=== PATIENT | female | born 1975 | race African-American/Black ===

== ENCOUNTER 2022-06-09 17:15 | Emergency (ER) | payer OTHER, SELFPAY ==
--- NOTE | ~2022-06-09 | XR_ITS ---
XR chest 2V DATE: 06/09/2022 19:15 INDICATION: Cough for 2 weeks. Shortness of breath. History of asthma. TECHNIQUE: PA and lateral views COMPARISON: None FINDINGS: Normal heart size. No hilar or mediastinal enlargement. No pulmonary infiltrate or consolid ation, pleural effusion or pulmonary vascular congestion or pneumothorax. IMPRESSION: No active cardiopulmonary disease Reviewed, dictated and finalized at location A.
[2022-06-09 17:20] VITALS: BP 142/72; PULSE 88; RESP 18; TEMP 36.4; O2SAT 99
--- NOTE | 2022-06-09 17:53 | ED.GENADULT ---
HPI - General Adult General Chief complaint: Upper Respiratory Infection Stated complaint: cough and congestion - hx of asthma Time Seen by Provider: 06/09/22 17:27 History of Present Illness HPI narrative: 46-year-old female presented emergency department for evaluation of an upper respiratory infection. Patient does have history of asthma, patient does use albuterol nebulizers intermittently and is on an inhaled steroid. Patient states she has not been taking these medications but has also not required them as of recently. Related Data Home Medications Medication Instructions Recorded Confirmed No Home Medications 06/09/22 06/09/22 Allergies Allergy/AdvReac Type Severity Reaction Status Date / Time meloxicam Allergy Rash Verified 06/09/22 17:50 Review of Systems Review of Systems: CONSTITUTIONAL: Denies fever, chills, or sweats. EYES: Denies visual changes, redness, or discharge. ENT: Denies rhinorrhea, congestion, sore throat, or otalgia. CARDIOVASCULAR: Denies chest pain, palpitations, or edema. RESPIRATORY: Upper respiratory infection symptoms, see HPI GASTROINTESTINAL: Denies abdominal pain, nausea, vomiting, or diarrhea. GENITOURINARY: Denies dysuria or hematuria. SKIN: Denies rash or itching. MUSCULOSKELETAL: Denies back pain, joint pain, or myalgia. NEUROLOGIC: Denies headache, numbness, or weakness. Exam Narrative: APPEARANCE: Well appearing, no pain, no distress, well-nourished. HEAD: normocephalic, atraumatic. EYES: PERRLA/EOMI, conjunctivae clear. NOSE: Normal no drainage EARS:TMS clear with good light reflex. THROAT: Pharynx clear, no exudate. NECK: Supple. No adenopathy, no masses. RESPIRATORY: Airway patent, respirations nonlabored. Some wheeze bilaterally CARDIOVASCULAR: Regular rate and rhythm without murmurs rubs or gallops. ABDOMINAL: Soft, nontender, nondistended, normal bowel sounds MUSCULOSKELETAL: Moves all extremities. Strength/ROM intact, No edema, No calf tenderness. NEURO: Alert. Cranial nerves II through XII intact. Grossly intact SKIN: Warm, dry. Normal Color Course Course Emergency Course: Patient did improve with treatment. Vital Signs Vital signs: Vital Signs Temperature 97.6 F 06/09/22 17:20 Pulse Rate 88 06/09/22 17:20 Respiratory Rate 18 06/09/22 17:20 Blood Pressure 142/72 H 06/09/22 17:20 Pulse Oximetry 99 06/09/22 17:20 Oxygen Delivery Room Air 06/09/22 17:20 Temperature 97.6 F 06/09/22 17:20 Pulse Rate 88 06/09/22 17:20 Respiratory Rate 18 06/09/22 17:20 Blood Pressure 142/72 H 06/09/22 17:20 Pulse Oximetry 99 06/09/22 17:20 Oxygen Delivery Room Air 06/09/22 17:20 Medical Decision Making Vital Signs Vital Signs: Vital Signs Temperature 97.6 F 06/09/22 17:20 Pulse Rate 88 06/09/22 17:20 Respiratory Rate 18 06/09/22 17:20 Blood Pressure 142/72 H 06/09/22 17:20 Pulse Oximetry 99 06/09/22 17:20 Oxygen Delivery Room Air 06/09/22 17:20 Temperature 97.6 F 06/09/22 17:20 Pulse Rate 88 06/09/22 17:20 Respiratory Rate 18 06/09/22 17:20 Blood Pressure 142/72 H 06/09/22 17:20 Pulse Oximetry 99 06/09/22 17:20 Oxygen Delivery Room Air 06/09/22 17:20 Lab Data Lab results reviewed: Yes I reviewed the patient's lab results. Labs: Lab Results 06/09/22 Range/Units 17:37 Influenza A (RT-PCR) Negative (Negative) Influenza B (RT-PCR) Negative (Negative) SARS-CoV-2 RNA (RT-PCR) Negative Discharge Plan Discharge Clinical Impression: Upper respiratory infection Patient Disposition: Home, Self-Care Condition: Stable Instructions: Antibiotic Form, Upper Respiratory Infection (ED), Viral Syndrome (ED) Additional Instructions: Have close follow-up with your primary care physician. Home medications as directed. If you have any worsening symptoms please call or return to the emergency room. Prescriptions: No Action No Home Medications
[2022-06-09 18:27] LABS: Influenza A QL RT-PCR Negative (Negative); Influenza B QL RT-PCR Negative (Negative); SARS-CoV-2 RNA PCR Negative
== END 2022-06-09 20:07 | disposition home or self-care (01) ==
PROVIDERS: Emergency Provider Emergency Medicine
DX: J06.9 Acute upper respiratory infection, unspecified (principal); J45.909 Unspecified asthma, uncomplicated; Z20.822 Contact with and (suspected) exposure to COVID-19
CPT/HCPCS: 71046; 87502; 99283; U0003; U0005

== ENCOUNTER 2023-01-11 17:05 | Emergency (ER) | payer OTHER, SELFPAY ==
[2023-01-11 18:13] VITALS: BP 146/72; PULSE 70; RESP 16; TEMP 36.4; O2SAT 98
--- NOTE | 2023-01-11 20:05 | ED.GENADULT ---
HPI - General Adult General Chief complaint: Upper Respiratory Infection Stated complaint: COUGHING Time Seen by Provider: 01/11/23 19:03 History of Present Illness HPI narrative: Patient is a 47-year-old female who presents ER with cough. Associate with sinus congestion and sore throat. Occasional wheezing. Became concerned she may have pneumonia. She has tested her for self for COVID at home and been negative. No body aches. No abdominal discomfort or nausea or vomiting. No alleviating factors. Related Data Allergies Allergy/AdvReac Type Severity Reaction Status Date / Time meloxicam Allergy Rash Verified 06/09/22 17:50 Review of Systems Review of Systems: All systems reviewed & are unremarkable except as noted in HPI and below Constitutional: Constitutional: Denies chills, Denies fatigue and Denies fever(s) ENT: Reports nasal congestion and Reports sore throat Cardiovascular: Cardiovascular: Denies chest pain, Denies rapid heart rate and Denies radiating jaw, neck or arm pain Respiratory: Respiratory: Reports cough, Denies dyspnea and Reports wheezing Gastrointestinal: Gastrointestinal: Denies abdominal pain, Denies nausea and Denies vomiting PMFSH Past Medical History Medical History (Updated 01/12/23 @ 05:48 by Rudi Sanders MD) Asthma Hyperlipidemia Surgical History Surgical History (Updated 01/12/23 @ 05:48 by Rudi Sanders MD) No pertinent past surgical history Exam Narrative: GENERAL: Well-appearing, morbidly obese, and in no acute distress. HEAD: Normocephalic, atraumatic. ENT: Mucous membranes moist. No pharyngeal erythema or tonsillar exudate. Uvula midline and nonedematous. NECK: Supple. CHEST: Clear to auscultation. No respiratory distress. HEART: Regular rate and rhythm. Normal peripheral pulses EXTREMITIES: Normal range of motion. No edema. NEURO: Alert and oriented x3. PSYCH: Normal mood and affect. Course Course Emergency Course: Patient resting comfortably. Lung sounds clear. Do not recommend x-ray at this time and patient comfortable with discharge home with decongestant and expectorant. Vital Signs Vital signs: Vital Signs Temperature 97.6 F 01/11/23 18:13 Pulse Rate 70 01/11/23 18:13 Respiratory Rate 16 01/11/23 18:13 Blood Pressure 146/72 H 01/11/23 18:13 Pulse Oximetry 98 01/11/23 18:13 Oxygen Delivery Room Air 01/11/23 18:13 Temperature 97.6 F 01/11/23 18:13 Pulse Rate 70 01/11/23 18:13 Respiratory Rate 16 01/11/23 18:13 Blood Pressure 146/72 H 01/11/23 18:13 Pulse Oximetry 98 01/11/23 18:13 Oxygen Delivery Room Air 01/11/23 18:13 Medical Decision Making Vital Signs Vital Signs: Vital Signs Temperature 97.6 F 01/11/23 18:13 Pulse Rate 70 01/11/23 18:13 Respiratory Rate 16 01/11/23 18:13 Blood Pressure 146/72 H 01/11/23 18:13 Pulse Oximetry 98 01/11/23 18:13 Oxygen Delivery Room Air 01/11/23 18:13 Temperature 97.6 F 01/11/23 18:13 Pulse Rate 70 01/11/23 18:13 Respiratory Rate 16 01/11/23 18:13 Blood Pressure 146/72 H 01/11/23 18:13 Pulse Oximetry 98 01/11/23 18:13 Oxygen Delivery Room Air 01/11/23 18:13 Discharge Plan Discharge Clinical Impression: Upper respiratory infection Patient Disposition: Home, Self-Care Condition: Stable Instructions: Viral Syndrome (ED) Additional Instructions: Return the ER if you cannot breathe, you cannot keep down food or water, you lose consciousness, you have additional concerns. Prescriptions: New pseudoephedrine-guaifenesin [Mucinex D] 60-600 mg tablet extended release 12 hr 1 tablet PO BID PRN (Reason: cold symptoms) Qty: 14 0RF Follow-up/Referrals: PHYSICIAN NOT ON STAFF,NONSTAFF [Primary Care Provider] - 1 Week
== END 2023-01-11 20:27 | disposition home or self-care (01) ==
PROVIDERS: Emergency Provider Emergency Medicine
DX: J06.9 Acute upper respiratory infection, unspecified (principal); E78.5 Hyperlipidemia, unspecified; J45.909 Unspecified asthma, uncomplicated
CPT/HCPCS: 99283

== ENCOUNTER 2023-06-20 15:40 | Emergency (ER) | payer OTHER, SELFPAY ==
--- NOTE | ~2023-06-20 | XR_ITS ---
EXAMINATION: XR chest 2V DATE: 06/20/2023 17:19 INDICATION: Cough TECHNIQUE: PA and lateral views of the chest were obtained. COMPARISON: Chest radiograph dated 06/09/2022 FINDINGS: The lungs remain clear with no focal airspace opacities, pulmonary edema, pleural effusion or pneumot horax. The cardiomediastinal silhouette is normal. Moderate thoracic spondylosis. Likely cholecystect shikha clips in the upper abdomen. IMPRESSION: 1. No acute cardiopulmonary disease. Reviewed, dictated and finalized at location A. OUT SUPERVISOR
[2023-06-20 15:45] VITALS: BP 121/68; PULSE 88; RESP 18; TEMP 36.6; O2SAT 98
--- NOTE | 2023-06-20 15:51 | ED.GENADULT ---
HPI - General Adult General Chief complaint: Upper Respiratory Infection Stated complaint: Cough Time Seen by Provider: 06/20/23 17:45 History of Present Illness HPI narrative: Nicki Broussard is a 47 y/o with PMHx of HLD/ fibroids and Asthma, she presents today with complaints of having a cough/ runny nose that has been ongoing for two weeks and getting worse. She has tired OTC medicaitons but she isn't improving. She reports her cough was clear and now its thick green sputum production. Denies sore throat/ Nausea /vomiting/ no abdominal pain/ no fever/chills. Related Data Allergies Allergy/AdvReac Type Severity Reaction Status Date / Time meloxicam Allergy Rash Verified 06/09/22 17:50 Review of Systems Review of Systems: CONSTITUTIONAL: Denies fever, chills, or sweats. EYES: Denies visual changes, redness, or discharge. ENT: Denies rhinorrhea, congestion, sore throat, or otalgia. CARDIOVASCULAR: Denies chest pain, palpitations, or edema. RESPIRATORY: Reports cough that is productive for about 2 weeks GASTROINTESTINAL: Denies abdominal pain, nausea, vomiting, or diarrhea. GENITOURINARY: Denies dysuria or hematuria. SKIN: Denies rash or itching. MUSCULOSKELETAL: Denies back pain, joint pain, or myalgia. NEUROLOGIC: Denies headache, numbness, dizziness, or weakness. PSYCHIATRIC: Denies anxiety or depression. PMFSH Past Medical History Medical History Asthma Hyperlipidemia Surgical History Surgical History No pertinent past surgical history Exam Narrative: GENERAL: Well-appearing, well-nourished, and in no acute distress. HEAD: Normocephalic, atraumatic. EYES: PERRLA and EOMI. ENT: Nares clear, no rhinorrhea or epistaxis. Mucous membranes moist. Oropharynx without tonsillar hypertrophy exudate or other lesions. Bilateral TMs pearly vance nonbulging NECK: Supple. No adenopathy or masses. No carotid bruits or JVD CHEST: Clear to auscultation. No respiratory distress. No wheezes rales or rhonchi HEART: Regular rate and rhythm. No murmur heard. Normal peripheral pulses. ABDOMEN: Soft, nontender, nondistended, normal active bowel sounds. EXTREMITIES: Normal range of motion. No edema. SKIN: Warm, dry, no rash. NEURO: No focal deficits. Alert and oriented x3. PSYCH: Normal mood and affect. Course Vital Signs Vital signs: Vital Signs Temperature 36.6 C 06/20/23 15:45 Pulse Rate 88 06/20/23 15:45 Respiratory Rate 18 06/20/23 15:45 Blood Pressure 121/68 06/20/23 15:45 Pulse Oximetry 98 06/20/23 15:45 Oxygen Delivery Room Air 06/20/23 15:45 Temperature 36.6 C 06/20/23 15:45 Pulse Rate 88 06/20/23 15:45 Respiratory Rate 18 06/20/23 15:45 Blood Pressure 121/68 06/20/23 15:45 Pulse Oximetry 98 06/20/23 15:45 Oxygen Delivery Room Air 06/20/23 15:45 Medical Decision Making MDM Narrative Medical decision making narrative: On exam pt's lungs are clear / no wheezes / rhnonci noted. patient reprots she has been afebrile with this cough over the past two weeks. No elevated WBC CMP is stable Flu/Covid/RSV negative With pt's symptoms on going for about 2 weeks and not improving, hemodynamicallyl stable/ no evidence of sepsis / CHest x ray is clear Not hypoxic sating 98% on RA> Plan to d/c home with PO antibiotics Close follow up with PCP Strict return precautions provided. Differential Diagnosis Differential Diagnosis: URI/Pneumonia/Astham exacerbation Vital Signs Vital Signs: Vital Signs Temperature 36.6 C 06/20/23 15:45 Pulse Rate 88 06/20/23 15:45 Respiratory Rate 18 06/20/23 15:45 Blood Pressure 121/68 06/20/23 15:45 Pulse Oximetry 98 06/20/23 15:45 Oxygen Delivery Room Air 06/20/23 15:45 Temperature 36.6 C 06/20/23 15:45 Pulse Rate 88 06/20/23 15:45 Respiratory Rate 18 06/20/23 15:45 Blood
[2023-06-20 16:53] LABS: Basophils Percent Auto 0.3 % (0.2-1.2); Eosinophils Absolute Auto 0.1 K/mm3 (0-0.3); Eosinophils Percent Auto 1.8 % (0-4.4); Hematocrit 41.8 % (37.0-47.0); Hemoglobin 13.7 g/dL (12.0-15.0); Immature Granulocyte Absolute 0.02 K/mm3 (0.00-0.031); Immature Granulocyte Percent A 0.3 % (0-0.5); Lymphocytes Absolute Auto 2.17 K/mm3 (0.9-3.2); Lymphocytes Percent Auto 29.8 % (18.3-44.2); Mean Corpuscular HGB Conc 32.8 g/dl (32-36); Mean Corpuscular Hemoglobin 25.6 pg (26-34); Mean Platelet Volume 10.7 fl (7.4-10.4); Monocytes Absolute Auto 0.6 K/mm3 (0.1-0.6); Monocytes Percent Auto 8.5 % (2.6-8.5); Neutrophils Absolute Auto 4.3 K/mm3 (1.3-6.7); Neutrophils Percent Auto 59.3 % (45.5-73.1); Platelet Count Result 287 k/mm3 (150-375); Red Blood Count 5.36 M/mm3 (4.2-5.4); Red Cell Distribution Width 14.8 % (11.5-14.5); White Blood Count 7.3 K/mm3 (4.5-10.0)
[2023-06-20 17:00] LABS: Anion Gap 6 mmol/L (8-16); Blood Urea Nitrogen 8 mg/dL (7-17); Carbon Dioxide 29 mmol/L (22-30); Chloride 105 mmol/L (98-107); Estimated Glomerular Filt Rate > 60; Glucose 180 mg/dL (65-110); Potassium 3.7 mmol/L (3.4-5.0); Sodium 140 mmol/L (137-145)
[2023-06-20 17:19] LABS: Influenza A QL RT-PCR Negative (Negative); Influenza B QL RT-PCR Negative (Negative); RSV RNA, RT-PCR Negative (Negative); SARS-CoV-2 RNA PCR Negative (Negative)
[2023-06-20] MEDS: AMOXICILLIN/CLAVULANATE K 875-125 MG TAB 1 TABLET PO (18:11)
== END 2023-06-20 18:21 | disposition home or self-care (01) ==
PROVIDERS: Emergency Provider Nurse Practitioner Family; PCP Family Medicine
DX: J06.9 Acute upper respiratory infection, unspecified (principal); J45.909 Unspecified asthma, uncomplicated; Z20.822 Contact with and (suspected) exposure to COVID-19; E78.5 Hyperlipidemia, unspecified
CPT/HCPCS: 36415; 71046; 80048; 85025; 87637; 99283; A9270

== ENCOUNTER 2023-11-17 17:17 | Emergency (ER) | payer SELFPAY ==
--- NOTE | ~2023-11-17 | CT_ITS ---
EXAMINATION: CT cervical spine wo con DATE: 11/17/2023 18:09 INDICATION: Left-sided neck pain radiating to the shoulders paresthesias. TECHNIQUE: Computed tomography (CT) of the cervical spine was performed without intravenous contrast. Automated exposure control and iterative reconstruction technique were employed. The dose-length pro duct was 575.29 mGy-cm. COMPARISON: None FINDINGS: 11 degrees cervical dextroscoliosis. There is also lower cervical kyphosis with straightening of the upper cervical spine. Vertebral body heights are normal. No acute fractures. Moderate disc height los s at C5-C6 and C6-C7 and mild disc height loss at C7-T1. Small amount of atherosclerotic calcific loc ation at the right carotid bulb. Cervical soft tissues are otherwise unremarkable. Visual is portions of the upper lungs are clear. The following disc levels are specifically discussed: C2-C3: There is no uncovertebral joint osteoarthritis. There is mild bilateral facet joint osteoarthr itis. There is no neural foraminal stenosis. There is no central canal stenosis. C3-C4: There is no uncovertebral joint osteoarthritis. There is mild bilateral facet joint osteoarthr itis. There is no neural foraminal stenosis. There is no central canal stenosis. C4-C5: There is mild bilateral uncovertebral joint osteoarthritis. There is mild bilateral facet join t osteoarthritis. There is no neural foraminal stenosis. There is no central canal stenosis. C5-C6: Prominent left side predominant posterior osteophyte complex. There is mild right and severe l eft uncovertebral joint osteoarthritis. There is mild bilateral facet joint osteoarthritis. There is mild right and moderate left neural foraminal stenosis. There is mild right-sided and moderate left-s ided central canal stenosis. C6-C7: Small left-sided predominant posterior disc ossified complex. There is old right and severe le ft uncovertebral joint osteoarthritis. There is mild bilateral facet joint osteoarthritis. There is m oderate left neural foraminal stenosis. There is mild central canal stenosis. C7-T1: There is no uncovertebral joint osteoarthritis. There is mild right and moderate left facet rishabh int osteoarthritis. There is no neural foraminal stenosis. There is no central canal stenosis. IMPRESSION: 1. Moderate lower cervical spondylosis. Reviewed, dictated and finalized at location A.
--- NOTE | ~2023-11-17 | XR_ITS ---
EXAMINATION: XR shoulder LT min 2V DATE: 11/17/2023 18:04 INDICATION: Left shoulder pain TECHNIQUE: AP internally and externally rotated, AP oblique externally rotated and transscapular Y vi ews of the left shoulder were obtained. COMPARISON: None FINDINGS: Normal alignment at the left shoulder. Mild upper thoracic levocurvature. No fracture. Glenohumeral j oint is normal. Mild left acromioclavicular osteoarthritis. Visualized portion of the lungs are clear . Soft tissues are unremarkable. IMPRESSION: Mild left acromion clavicular osteoarthritis. No acute osseous abnormality. Reviewed, dictated and finalized at location A.
[2023-11-17 17:32] VITALS: BP 175/69; PULSE 85; RESP 19; TEMP 36.4; O2SAT 99
--- NOTE | 2023-11-17 17:55 | ED.UPPEXIN ---
HPI - Extremity Injury (Upper) General Chief Complaint: Extremity Injury, Upper Stated Complaint: left arm pain Time Seen by Provider: 11/17/23 17:49 Source: patient Mode of arrival: ambulatory Limitations: no limitations History of Present Illness HPI narrative: This is a 48-year-old female that presents to the emergency department for left shoulder pain. Ongoing over the last month. She was seen at Urgent Care. Prescribed a course of naproxen. She took this and has had continued pain which prompted her to be seen. No recent injuries or trauma. The pain is in the left side of her neck and radiates into her shoulder. Worse with certain movements and with lifting with that arm. Denies decreased range of motion or numbness. Related Data Allergies Allergy/AdvReac Type Severity Reaction Status Date / Time meloxicam Allergy Rash Verified 06/09/22 17:50 Review of Systems Review of Systems: CONSTITUTIONAL: Denies fever CARDIOVASCULAR: Denies chest pain SKIN: Denies rash MUSCULOSKELETAL: Reports joint pain, and myalgia. NEUROLOGIC: Denies numbness, or weakness. All systems reviewed & are unremarkable except as noted in HPI and below PMFSH Past Medical History Medical History Asthma Hyperlipidemia Surgical History Surgical History No pertinent past surgical history Social History Social History (Updated 11/17/23 @ 17:57 by Michelle Hui PA-C) Smoking status: Never smoker Exam Narrative: GENERAL: Well-appearing, well-nourished, and in no acute distress. HEAD: Normocephalic, atraumatic. EYES: EOMI. ENT: Nares clear, no rhinorrhea or epistaxis. Mucous membranes moist. Oropharynx without tonsillar hypertrophy exudate or other lesions. Bilateral TMs pearly vance non-bulging NECK: Supple. No adenopathy or masses. Tender to palpation of left trapezius musculature CHEST: Clear to auscultation. No respiratory distress. No wheezes rales or rhonchi HEART: Regular rate and rhythm. No murmur heard. Normal peripheral pulses. EXTREMITIES: Normal range of motion. No edema or erythema. Strength equal in bilateral upper extremities (5/5) SKIN: Warm, dry, no rash. NEURO: No focal deficits. Alert and oriented x3. PSYCH: Normal mood and affect Course Course Emergency Course: Patient updated on her workup and agrees with plan of care Vital Signs Vital signs: Vital Signs Temperature 97.6 F 11/17/23 17:32 Pulse Rate 85 11/17/23 17:32 Respiratory Rate 19 11/17/23 17:32 Blood Pressure 175/69 H 11/17/23 17:32 Pulse Oximetry 99 11/17/23 17:32 Temperature 97.6 F 11/17/23 17:32 Pulse Rate 85 11/17/23 17:32 Respiratory Rate 19 11/17/23 17:32 Blood Pressure 175/69 H 11/17/23 17:32 Pulse Oximetry 99 11/17/23 17:32 MDM - Extremity Injury (Upper) MDM Narrative Medical decision making narrative: Patient presents to the ER for left sided shoulder/neck pain ongoing over the last month. No known injury or trauma. Patient is neurovascularly intact. Left shoulder x-ray shows osteoarthritis. CT cervical spine shows moderate lower cervical spondylosis. Patient was updated on her workup and agrees with plan of care. Instructed to continue [id number] pain medication as needed. Will be prescribed muscle relaxer as needed for pain. Will be given follow up with orthopedics. She was given warnings to return to the ER Differential Diagnosis Differential diagnosis: Likely other (muscle strain, rotator cuff tendinitis, osteoarthritis, cervical strain, cervical radiculopathy) Imaging Data Radiologist's impression: ITS Impressions Shoulder X-Ray 11/17/23 18:10 IMPRESSION: Mild left acromion clavicular osteoarthritis. No acute osseous abnormality. Cervical Spine CT 11/17/23 18:14 IMPRESSION: 1. Moderate lower cervical spondylosis. Critical Care Time Cr
[2023-11-17] MEDS: ACETAMINOPHEN 500 MG TABLET 1000 MG PO (18:09)
[2023-11-17 19:31] VITALS: BP 156/98; PULSE 74; RESP 15; O2SAT 99
== END 2023-11-17 19:33 | disposition home or self-care (01) ==
PROVIDERS: Emergency Provider Physician Assistant; PCP Family Medicine
DX: M25.512 Pain in left shoulder (principal); J45.909 Unspecified asthma, uncomplicated; E78.5 Hyperlipidemia, unspecified; M19.012 Primary osteoarthritis, left shoulder; M47.812 Spondylosis without myelopathy or radiculopathy, cervical region
CPT/HCPCS: 72125; 73030; 99284; A9270

== ENCOUNTER 2024-06-08 07:56 | Emergency (ER) | payer OTHER, SELFPAY ==
[2024-06-08 08:01] VITALS: BP 151/102; PULSE 74; RESP 20; TEMP 36.5; O2SAT 95
--- NOTE | 2024-06-08 09:21 | ECG_ITS ---
Test Date: 2024-06-08 09:28:40 Measurements Intervals [place] Rate: 63 P: 25 TX: 204 QRS: 7 QRSD: 82 T: 3 QT: 411 QTc: 423 Interpretive Statements SINUS RHYTHM No previous ECG available for comparison Electronically Signed On 06-08-2024 15:36:16 CDT by Ramila Floyd M.D.
--- NOTE | 2024-06-08 09:48 | ED.EXTPRO ---
HPI - Extremity Problem General Chief complaint: Extremity Problem,Nontraumatic Stated complaint: covid +, pneumonia Time Seen by Provider: 06/08/24 08:52 Source: patient Mode of arrival: ambulatory Limitations: no limitations History of Present Illness HPI Narrative: This is a 48-year-old female who presents to the ED for chief complaint of right shoulder pain for the past couple of weeks. Reports that the shoulder has been bothering her since being diagnosed with COVID and the pneumonia. Reports being diagnosed COVID positive on 05/31 and return to the ED for the right shoulder pain. They did x-ray that showed some pneumonia so they got her on a Z-Lorenzo. Reports the COVID symptoms and respiratory symptoms are improving however the shoulder is still bothering her. Denies any trauma to the shoulder. Denies chest pain, shortness of breath, sweats, syncope, back pain, exertional component to pain. Related Data Allergies Allergy/AdvReac Type Severity Reaction Status Date / Time meloxicam Allergy Rash Verified 06/08/24 08:24 Review of Systems Review of Systems: All systems as dictated in HPI [facility] Past Medical History Medical History Asthma Hyperlipidemia Surgical History Surgical History No pertinent past surgical history Social History Social History (Updated 11/17/23 @ 17:57 by Michelle Hui PA-C) Smoking status: Never smoker Exam Narrative: GENERAL: Well-appearing, well-nourished, and in no acute distress. HEAD: Normocephalic, atraumatic. EYES: PERRLA and EOMI. ENT: Nares clear, no rhinorrhea or epistaxis. Mucous membranes moist. Oropharynx without tonsillar hypertrophy exudate or other lesions. NECK: Supple. No adenopathy or masses. CHEST: No respiratory distress. 95% room air. Mild end-expiratory wheezes heard at the bases. HEART: Regular rate and rhythm. No murmur heard. Normal peripheral pulses. ABDOMEN: Soft, nontender, nondistended, normal active bowel sounds. MSK: Normal range of motion. No edema. Tenderness present to the right shoulder. No skin changes overlying. SKIN: Warm, dry, no rash. NEURO: Alert and oriented x4. No focal deficits. PSYCH: Normal mood and affect. Course Vital Signs Vital signs: Vital Signs Temperature 97.7 F 06/08/24 08:01 Pulse Rate 74 06/08/24 08:01 Respiratory Rate 20 06/08/24 08:01 Blood Pressure 151/102 H 06/08/24 08:01 Pulse Oximetry 95 06/08/24 08:01 Oxygen Delivery Room Air 06/08/24 08:01 Temperature 97.9 F 06/08/24 10:54 Pulse Rate 67 06/08/24 10:54 Respiratory Rate 20 06/08/24 10:54 Blood Pressure 149/88 H 06/08/24 10:54 Pulse Oximetry 100 06/08/24 10:54 Oxygen Delivery Room Air 06/08/24 08:01 MDM - Extremity (Nontraumatic) MDM Narrative Medical decision making narrative: This is a 48 yo female who presents to the ED for right shoulder pain after being diagnosed with COVID and pneumonia. Vitals are normal. No respiratory distress. Exam does show mild wheezing, consistent with patient's history of asthma and recent diagnosis of respiratory illness. Avoided lab work and imaging today as she feels that her COVID symptoms are resolving. EKG does not reveal any ischemia. No historical elements of NH. She was started on breathing treatment for the wheezing and Toradol shot for the pain with moderate improvement. Patient will be discharged in stable condition. Supportive measures discussed and return precautions given. Patient is understanding and agreeable with plan for discharge with PCP follow-up. Discharge Plan Discharge Clinical Impression: Pain in right shoulder Patient Disposition: Home, Self-Care Condition: Stable Instructions: Antibiotic Form Additional Instructions: Your exam today is reassuring. Please take Toradol for pain control along with Tylenol. Continue using your inhalers regularly. Follow-up with PCP on this issue. If you have any new or worsening symptoms please return to the ER for further evaluation. Prescriptions: New ketorolac 10 mg tablet 10 mg PO Q8H PRN (Reason: pain) Qty: 12 0RF Rx Instructions: maximum total duration of 5 days from all oral, intranasal, or parenteral formulations No Action amoxicillin-pot clavulanate 875-125 mg tablet 1 tablet PO Q12H Qty: 14 0RF pseudoephedrine-guaifenesin [Mucinex D] 60-600 mg tablet extended release 12 hr 1 tablet PO BID PRN (Reason: cold symptoms) Qty: 14 0RF cyclobenzaprine 10 mg tablet 10 mg PO TID PRN (Reason: muscle spasm) Qty: 14 0RF Follow-up/Referrals: Cb,Jayesh Mcdonald MD [Primary Care Provider] - Time of Disposition: 09:57
[2024-06-08 10:25] VITALS: PULSE 76; RESP 18
[2024-06-08] MEDS: IPRATROPIUM 0.5 MG/ALBUTEROL SULFATE 2.5 MG AMPUL.NEB 3 ML INHALATION (10:25)
[2024-06-08 10:35] VITALS: PULSE 75; RESP 18
[2024-06-08] MEDS: KETOROLAC 30 MG/ML VIAL (*BKC) IM (10:51)
[2024-06-08 10:54] VITALS: BP 149/88; PULSE 67; RESP 20; TEMP 36.6; O2SAT 100
== END 2024-06-08 11:30 | disposition home or self-care (01) ==
PROVIDERS: Emergency Provider Physician Assistant; PCP Family Medicine
DX: M25.511 Pain in right shoulder (principal); J45.909 Unspecified asthma, uncomplicated; E78.5 Hyperlipidemia, unspecified; Z86.16 Personal history of COVID-19; Z87.01 Personal history of pneumonia (recurrent)
CPT/HCPCS: 93005; 94640; 96372; 99283; J1885